=== PATIENT | female | born 1975 | race African-American/Black ===

== ENCOUNTER 2020-10-12 03:05 | Emergency (ER) | payer SELFPAY ==
[~2020-10-12] VITALS: Ht 172 cm; Wt 109.0 kg
[2020-10-12] MEDS ORDERED: LIDO20SO23 MM (03:42)
[2020-10-12] MEDS ORDERED: AMOX875T2 PO (03:42)
[2020-10-12] MEDS ORDERED: NAPR500T8 PO (03:42)
[2020-10-12] MEDS ORDERED: RX-NAPROXEN (NAPROSYN) 250 MG TAB PPK#4 PO STA (03:43)
[2020-10-12] MEDS ORDERED: RX-AMOXICILLIN 500 MG CAP #3 PPK PO STA (03:43)
--- NOTE | 2020-10-12 03:43 | ED EENT ---
History of Present Illness General Chief Complaint: Dental Problems/Pain Stated Complaint: TROUBLE SWALLOWING / TOOTH ACHE Nursing Triage Note: patient presented to the ER tonight with complaints of left sided dental pain. Patient states the pain is on the bottom portion of her mouth. She advised she tried an numbing agent at home but that the relief has been short. She states she feels like there is a lump in her throat and that she cannot swallow. Past Gxitugf-Uxmovm-Extawx Hx Patient Social History Smoking Status: Current Everyday Smoker Seasonal Allergies Seasonal Allergies: No Past Medical History Surgeries: Yes Gallbladder Respiratory: No Cardiac: Yes (mitral valve prolapse) Genitourinary: No Gastrointestinal: No Musculoskeletal: No Endocrine: No HEENT: No Cancer: No Psychosocial: No Integumentary: No Blood Disorders: No Physical Exam Vital Signs Vital Signs - First Documented 10/12/20 03:23 Temp 35.8 Pulse 95 Resp 16 B/P (MAP) 163/104 (123) Pulse Ox 100 O2 Delivery Room Air Height, Weight, BMI Height: '" Weight: lbs. oz. kg; 36.00 BMI Method: Progress/Results/Core Measures Results/Orders Vital Signs/I&O 10/12/20 03:23 Temp 35.8 Pulse 95 Resp 16 B/P (MAP) 163/104 (123) Pulse Ox 100 O2 Delivery Room Air Blood Pressure Mean: 123 Departure Impression Primary Impression: Infected dental caries Disposition: 01 HOME, SELF-CARE Condition: Stable Departure-Patient Inst. Decision time for Depature: 03:40 Patient Instructions: Tooth Decay, Adult (DC), Tooth Abscess ED Add. Discharge Instructions: FREQUENT SALT WATER SWISHES TYLENOL 1 GRAM 4 TIMES A DAY FOR PAIN FOLLOW UP WITH DENTIST OF CHOICE SOON POSSIBLE--CALL ON Tuesday TO SCHEDULE APPOINTMENT All discharge instructions reviewed with patient and/or family. Voiced understanding. Scripts Lidocaine HCl (Lidocaine HCl Viscous) 15 Ml Solution 1-2 ML MM [id number], #120 ML Prov: VIRGIL MORRISON DO 10/12/20 Naproxen (Naproxen) 500 Mg Tablet.dr 500 MG PO BID, #20 TAB Prov: VIRGIL MORRISON DO 10/12/20 Amoxicillin (Amoxicillin) 875 Mg Tablet 875 MG PO BID, #20 TAB Prov: VIRGIL MORRISON DO 10/12/20 VIRGIL MORRISON DO Oct 12, 2020 03:43
[2020-10-12] MEDS ORDERED: LIDOCAINE 2% VISCOUS 15 ML UDC MM ONE (03:45)
[2020-10-12 03:58] VITALS: BP 150/98
== END 2020-10-12 03:59 | disposition home or self-care (01) ==
LOC: ER 03:08
DX: K02.9 Dental caries, unspecified (principal); F17.200 Nicotine dependence, unspecified, uncomplicated
CPT/HCPCS: 99283